=== PATIENT | male | born 1995 | race Caucasian/White ===

== ENCOUNTER 2017-05-03 19:39 | Emergency (ER) | payer OTHER ==
[~2017-05-03] VITALS: Ht 177.8 cm; Wt 145.1 kg
[~2017-05-03 19:39] MED LIST: AMOXICILLIN500 MG PO; ATARAX25 MG PO; AYR NASAL GEL22 ML NAS; BACTRIM DS 8001 TA1 PO; BACTROBAN CREAM15 GM PO; CEPHALEXIN500 M1 PO; CIPRODEX 0.3%-7.5 ML OT; CONCERTA36 MG PO; DDAVP0.2 MG PO; INTUNIV2 MG PO; KEFLEX500 MG PO; MOTRIN400 MG PO; NAPROSYN500 MG PO; ONE DAILY MULTI1 TA1 PO; PREDNISONE20 MG PO; REXULTI1 MG PO; RITE AID MELATON5 MG PO; VIBRAMYCIN100 MG PO; ZOLOFT25 MG PO
[2017-05-03 20:11] LABS: BASO % 0.5 % (0.0-1.0); EOS # 0.1 10*3/uL (0.0-0.4); EOS % 1.6 % (1.0-4.0); HEMATOCRIT 44.8 % (42.0-52.0); HEMOGLOBIN 15.5 g/dl (14.0-18.0); LYMPH # 2.4 10*3/uL (1.3-4.4); LYMPH % 28.2 % (27.0-41.0); MEAN CELL VOLUME 81.8 fl (80.0-94.0); MEAN CORPUSCULAR HGB 28.3 pg (27.0-31.0); MEAN CORPUSCULAR HGB CONC 34.6 g/dl (33.0-37.0); MONO # 0.6 10*3/uL (0.1-1.0); MONO % 6.8 % (3.0-9.0); NEUT # 5.2 10*3/uL (2.3-7.9); NEUT % 62.8 % (47.0-73.0); PLATELET COUNT AUTOMATED 278 10*3/uL (130-400); RED BLOOD COUNT 5.48 10*6/uL (4.50-5.90); RED CELL DISTRI WIDTH 12.2 % (0-14.5); WHITE BLOOD COUNT 8.3 10*3/uL (4.8-10.8)
[2017-05-03 20:32] LABS: ALBUMIN 3.7 gm/dl (3.1-4.5); ALKALINE PHOSPHATASE 90 U/L (45-117); BUN 14 mg/dl (7-24); CHLORIDE 103 mmol/L (98-107); LIPASE 163 U/L (73-393); POTASSIUM 3.8 mmol/L (3.5-5.1); SGOT/AST 25 IU/L (3-35); SGPT/ALT 48 U/L (12-78); SODIUM 141 mmol/L (136-145); TOTAL PROTEIN 7.3 gm/dL (6.4-8.2)
[2017-05-03 20:34] LABS: TROPONIN I < 0.015 ng/ml (<0.045)
== END 2017-05-03 22:20 | disposition home or self-care (01) ==
LOC: ED 19:39
PROVIDERS: Physician Assistant
DX: R07.89 Other chest pain (principal); F17.200 Nicotine dependence, unspecified, uncomplicated

== ENCOUNTER 2020-08-18 22:33 | Emergency (ER) | payer OTHER ==
[2020-08-18] MEDS ORDERED: METHOCARBAMOL750 M1 PO (22:47)
[2020-08-18] MEDS ORDERED: NAPROSYN500 MG PO (22:47)
== END 2020-08-18 22:55 | disposition home or self-care (01) ==
LOC: ED 22:33
DX: S39.012A Strain of muscle, fascia and tendon of lower back, initial encounter (principal); X58.XXXA Exposure to other specified factors, initial encounter; Y93.89 Activity, other specified; Y92.89 Other specified places as the place of occurrence of the external cause; Y99.8 Other external cause status

== ENCOUNTER 2022-03-02 09:38 | Emergency (ER) | payer OTHER ==
[~2022-03-02] VITALS: Ht 177.8 cm; Wt 145.1 kg
[~2022-03-02 09:38] MED LIST changes: +METHOCARBAMOL750 M1 PO
== END 2022-03-02 11:05 | disposition home or self-care (01) ==
LOC: ED 09:38
DX: S61.011A Laceration without foreign body of right thumb without damage to nail, initial encounter (principal); W45.8XXA Other foreign body or object entering through skin, initial encounter; Y93.89 Activity, other specified; Y92.89 Other specified places as the place of occurrence of the external cause; Y99.8 Other external cause status

== ENCOUNTER 2022-03-23 04:45 | Emergency (ER) | payer OTHER ==
[~2022-03-23] VITALS: Ht 180.3 cm; Wt 136.1 kg
[2022-03-23] MEDS ORDERED: RELAFEN DS1000 MG PO (08:32)
== END 2022-03-23 08:35 | disposition home or self-care (01) ==
LOC: ED 04:45
DX: S93.402A Sprain of unspecified ligament of left ankle, initial encounter (principal); W17.2XXA Fall into hole, initial encounter; Y93.89 Activity, other specified; Y92.89 Other specified places as the place of occurrence of the external cause; Y99.8 Other external cause status

== ENCOUNTER → 2024-04-19 | Outpatient (CLI) | payer OTHER ==
[~2024-04-19] MED LIST changes: +RELAFEN DS1000 MG PO
[2024-04-19 10:46] LABS: BASO % 0.4 % (0.0-1.0); BILIRUBIN Negative (Negative); BLOOD Negative (Negative); CLARITY Clear (Clear); COLOR Yellow (Yellow); EOS % 0.5 % (1.0-4.0); GLUCOSE Negative (Negative); KETONE Trace (Negative); LEUKO ESTERASE Negative (Negative); MEAN CELL VOLUME 81.4 fl (80.0-94.0); MEAN CORPUSCULAR HGB 27.8 pg (27.0-31.0); MEAN CORPUSCULAR HGB CONC 34.2 g/dl (33.0-37.0); MEAN PLATELET VOLUME 10.2 fl (9.6-12.3); MONO # 0.8 10*3/uL (0.1-1.0); MONO % 10.1 % (3.0-9.0); NEUT # 5.8 10*3/uL (2.3-7.9); NEUT % 71.9 % (47.0-73.0); NITRITE Negative (Negative); PLATELET COUNT AUTOMATED 196 10*3/uL (130-400); RED BLOOD COUNT 5.53 10*6/uL (4.50-5.90); RED CELL DISTRI WIDTH 12.2 % (0-14.5); RETICULOCYTE % 0.39 % (0.50-2.50); SPECIFIC GRAVITY 1.025 (1.001-1.030); UROBILINOGEN 0.2 E.U./dl (0.0-1.0); WHITE BLOOD COUNT 8.1 10*3/uL (4.8-10.8)
[2024-04-19 11:28] LABS: MUCOUS 1+; RBC 0-2 rbc/hpf (0-2)
[2024-04-19 12:05] LABS: ALKALINE PHOSPHATASE 63 U/L (46-116); BUN 10 mg/dl (9-23); CHLORIDE 103 mmol/L (98-107); CHOLESTEROL 146 mg/dL (<200); GAMMA GLUTAMYL TRANSPEPTIDASE 45 U/L (0-73); LDL CHOLESTEROL 92 mg/dL (9-159); POTASSIUM 3.5 mmol/L (3.4-5.1); SGPT/ALT 59 U/L (5-49); T3 UPTAKE 32.2 % (22.4-36.7); THYROXINE (T4) TOTAL 10.5 ug/dl (4.5-10.9); TOTAL PROTEIN 7.8 gm/dL (6.0-8.0); TRIGLYCERIDES 113 mg/dl (<150); URIC ACID 6.5 mg/dL (3.7-9.2)
[2024-04-19 12:08] LABS: VITAMIN D, 25-HYDROXY 20.7 ng/mL (30-100)
[2024-04-20 14:07] LABS: ANTI-DSDNA ANTIBODIES <1 IU/mL (0-9)
== END | disposition home or self-care (01) ==
LOC: LAB 10:16
PROVIDERS: ATTEND Family Medicine
DX: R53.83 Other fatigue (principal); R79.89 Other specified abnormal findings of blood chemistry; E78.5 Hyperlipidemia, unspecified; E55.9 Vitamin D deficiency, unspecified